=== PATIENT | male | born 1965 | race African-American/Black ===

== ENCOUNTER 2016-11-21 15:06 | Emergency (ER) | payer SELFPAY ==
[~2016-11-21] VITALS: Ht 185.4 cm; Wt 99.8 kg
[2016-11-21 15:16] VITALS: BP 133/80
[2016-11-21] MEDS ORDERED: IPRATRPIUM/ALBUTEROL 0.5/2.5MG 3 ML NEBU. NEB ONE (15:45)
--- NOTE | 2016-11-21 15:58 | PHYS DOC ---
Past Medical History Past Medical History: Other Additional Past Medical Histor: chronic low back pain, drug seeking behavior Past Surgical History: Other Additional Past Surgical Histo: right thumb Alcohol Use: Occasionally Drug Use: None Adult General Chief Complaint Chief Complaint: Congestion HPI HPI Patient is a 51 year old male presents emergency Department today with complaint of progressive cough and congestion that began 3-4 months ago. Patient is a smoker. He averages approximately a pack of cigarettes a day. Patient also smokes marijuana and times smoke marijuana with cocaine. He denies any known history of heart or lung disease. He denies taking antibiotics within the past 30 days. He does report generalized weakness, but denies fevers or chills. He denies myalgias or arthralgias. He denies unexplained loss of weight. Review of Systems Review of Systems Constitutional: Denies fever or chills [] Eyes: Denies change in visual acuity, redness, or eye pain [] HENT: Denies nasal congestion or sore throat [] Respiratory: Denies cough or shortness of breath [] Cardiovascular: No additional information not addressed in HPI [] GI: Denies abdominal pain, nausea, vomiting, bloody stools or diarrhea [] : Denies dysuria or hematuria [] Musculoskeletal: Denies back pain or joint pain [] Integument: Denies rash or skin lesions [] Neurologic: Denies headache, focal weakness or sensory changes [] Endocrine: Denies polyuria or polydipsia [] Current Medications Current Medications Current Medications Medications (Trade) Dose Ordered Sig/Ford Start Time Stop Time Status Last Admin Dose Admin Albuterol/ Ipratropium (Duoneb) 3 ml 1X ONCE 11/21/16 15:45 11/21/16 15:48 DC 11/21/16 16:45 3 ML Ondansetron HCl (Zofran Odt) 4 mg 1X ONCE 11/21/16 17:00 11/21/16 17:01 DC 11/21/16 16:46 4 MG Prednisone (Prednisone) 50 mg 1X ONCE 11/21/16 17:00 11/21/16 17:01 DC 11/21/16 16:44 50 MG Allergies Allergies Allergies Coded Allergies Type Severity Reaction Last Updated Verified No Known Drug Allergies 03/19/15 No Physical Exam Physical Exam Constitutional: Well developed, well nourished, no acute distress, non-toxic appearance. Patient is afebrile. He shows no evidence of respiratory distress or respiratory fatigue. HENT: Normocephalic, atraumatic, bilateral external ears normal, oropharynx moist, no oral exudates, nose normal. Eyes: PERRLA, EOMI, conjunctiva normal, no discharge. [] Neck: Normal range of motion, no tenderness, supple, no stridor. [] Cardiovascular:Heart rate regular rhythm, no murmur. PMI is not displaced. There is no JVD or peripheral edema. Lungs & Thorax: There is no sensory muscle use. Patient has scattered bilateral wheezing. He is able to speak in full sentences. His oxygen saturation varies between 96-99% on room air. Abdomen: Bowel sounds normal, soft, no tenderness, no masses, no pulsatile masses. [] Skin: Warm, dry, no erythema, no rash. [] Back: No tenderness, no CVA tenderness. [] Extremities: No tenderness, no cyanosis, no clubbing, ROM intact, no edema. [] Neurologic: Alert and oriented X 3, normal motor function, normal sensory function, no focal deficits noted. [] Psychologic: Affect normal, judgement normal, mood normal. [] Current Patient Data Vital Signs Vital Signs Date Time Temp Pulse Resp B/P Pulse Ox O2 Delivery O2 Flow Rate FiO2 11/21/16 15:16 98.2 91 18 133/80 95 Room Air 98.2 EKG EKG [] Radiology/Procedures Radiology/Procedures PA and lateral chest x-ray performed and reviewed by the radiologist. There is no evidence of infiltrate, consolidation or abnormalities within the chest. Course & Med Decision Making Course & Med Decision Making Patient's significant other expressed concern for patient's he's had episodes of hematemesis throughout the past year as well. This was not expressed with his initial presentation has not been on any reports of vomiting approximately 2 hours. Patient denies having history of substance abuse including alcohol. He needs to face the fact that he needs to stop abusing his body with substances and establish himself with a primary care doctor, a pie bottomer and a awning hanger helper. This information will be provided to him with his discharge paperwork. Patient was given 50 mg of prednisone here in the emergency department. He also received a 2.5 mg DuoNeb treatment. The wheezing in his lungs significantly decreased. He reports feeling much better after the breathing treatment. Dragon Disclaimer Dragon Disclaimer This electronic medical record was generated, in whole or in part, using a voice recognition dictation system. Departure Departure Impression: Primary Impression: COPD (chronic obstructive pulmonary disease) Additional Impressions: Hematemesis Substance abuse Disposition: 01 HOME, SELF-CARE Condition: IMPROVED Referrals: NO PCP (PCP) NAZANIN STRONG MD, SABATO MD Patient Instructions: Chronic Obstructive Pulmonary Disease Exacerbation, Hematemesis, Smoking Cessation, Tips For Success, Smoking, You Can Quit, Easy-to -Read, Substance Abuse-Brief Additional Instructions: 1. You need to stop smoking him putting other substances in your body there has a posterior health. 2. Review the discharge instructions provided for self-care and reasons to return to the emergency department. 3. A pamphlet is provided to you for assistance in finding a primary care doctor to address her overall medical concerns. Call Thursday to schedule an appointment. 4. Two specialist phone numbers are provided to you with this paperwork. They are for a pie bottomer and a awning hanger helper. Call Thursday to schedule appointments. 5. Take the medication as prescribed. Scripts Famotidine (Pepcid)20 Mg [id number] Mg PO BID #30 TAB Prov:KRISSY DORANTES 11/21/16 Albuterol Sulfate (Proair Hfa Inhaler)8.5 Gm Hfa.aer.ad1 Puff INH PRN Q6HRS PRN SHORTNESS OF BREATH #1 INHALER Ref 1 Prov:KRISSY DORANTES 11/21/16 D-Methorphan Hb/Prometh Hcl (Promethazine-Dm Syrup)118 Ml Syrup5 Ml PO PRN Q6HRS COUGH #120 ML Prov:KRISSY DORANTES 11/21/16 Prednisone 50 Mg [id number] Mg PO DAILY 5 Days Prov:KRISSY DORANTES 11/21/16 Problem Qualifiers KRISSY DORANTES Nov 21, 2016 15:58
[2016-11-21] MEDS ORDERED: PREDNISONE 10 MG TABLET PO ONE (16:00)
--- NOTE | 2016-11-21 16:27 | RAD ---
Indication cough and shortness of breath. PA and lateral views the chest were obtained and are compared to an exam 01/16/2009. There is mild hyperexpansion. The heart and pulmonary vessels and mediastinum appear normal. The lungs are clear of acute infiltrates. Significant pleural fluid is not seen. There is no pneumothorax. There are probable degenerative changes about the left shoulder. A significant change compared to the previous exam is not seen. IMPRESSION: No acute or focal process. No significant change.
[2016-11-21] MEDS ORDERED: PROAIR HFA8.5 GM INH (16:52)
[2016-11-21] MEDS ORDERED: FAMO-63 PO (16:52)
[2016-11-21] MEDS ORDERED: PRED50TA PO (16:52)
[2016-11-21] MEDS ORDERED: D-ME118S2 PO (16:52)
[2016-11-21] MEDS ORDERED: PREDNISONE 20 MG TABLET PO ONE (17:00)
[2016-11-21] MEDS ORDERED: ONDANSETRON ODT 4 MG TAB.RAPDIS PO ONE (17:00)
== END 2016-11-21 17:07 | disposition home or self-care (01) ==
LOC: ER 15:06
DX: K92.0 Hematemesis (principal); J44.9 Chronic obstructive pulmonary disease, unspecified; F17.210 Nicotine dependence, cigarettes, uncomplicated; F12.10 Cannabis abuse, uncomplicated; F14.10 Cocaine abuse, uncomplicated; G89.29 Other chronic pain; M54.5 Low back pain; Z76.5 Malingerer [conscious simulation]
CPT/HCPCS: 71020; 99284; J7512; J7620; Q0162

== ENCOUNTER 2017-01-28 10:45 | Emergency (ER) | payer SELFPAY ==
[~2017-01-28] VITALS: Ht 185.4 cm; Wt 97.5 kg
[~2017-01-28 10:45] MED LIST: D-ME118S2 PO; FAMO-63 PO; PRED50TA PO; PROAIR HFA8.5 GM INH
[2017-01-28 10:50] VITALS: BP 117/67
[2017-01-28] MEDS ORDERED: CYCL10TA2 PO (11:33)
[2017-01-28] MEDS ORDERED: GABA-586 PO (11:33)
[2017-01-28] MEDS ORDERED: OFLO5DRO7 EACH EAR (11:33)
[2017-01-28] MEDS ORDERED: METH4TAB2 PO (11:33)
[2017-01-28] MEDS ORDERED: NAPR500T3 PO (11:33)
--- NOTE | 2017-01-28 11:33 | PHYS DOC ---
Past Medical History Past Medical History: COPD, Pneumonia, Other Additional Past Medical Histor: chronic low back pain, drug seeking behavior Past Surgical History: Other Additional Past Surgical Histo: right thumb Alcohol Use: None Drug Use: None Adult General Chief Complaint Chief Complaint: EARACHE/EAR PAIN [facility] HPI Patient is a 51 year old male with history of COPD who presents today with 2 complaints. Patient is complaining of right ear pain with greenish discharge that began a week ago. Patient denies any fever coughing or congestion. Patient is also complaining of chronic moderate bilateral shoulder pain that has been going on for months. Patient states he believes he has rotator cuff issues. 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 Patient denies any known injury. Review of Systems Review of Systems Constitutional: Denies fever or chills [] Eyes: Denies change in visual acuity, redness, or eye pain [] HENT: Right ear pain with greenish discharge Respiratory: Denies cough or shortness of breath [] Cardiovascular: No additional information not addressed in HPI [] GI: Denies abdominal pain, nausea, vomiting, bloody stools or diarrhea [] : Denies dysuria or hematuria [] Musculoskeletal: Chronic bilateral shoulder pain Integument: Denies rash or skin lesions [] Neurologic: Denies headache, focal weakness or sensory changes [] Endocrine: Denies polyuria or polydipsia [] Allergies Allergies Allergies Coded Allergies Type Severity Reaction Last Updated Verified No Known Drug Allergies 03/19/15 No Physical Exam Physical Exam Constitutional: Well developed, well nourished, no acute distress, non-toxic appearance. [] HENT: Normocephalic, atraumatic, bilateral external ears normal, oropharynx moist, no oral exudates, nose normal. Right ear canal is moderately indurated. There is trace amount of yellow exudate. The TM can barely be visualized but appears normal. Eyes: PERRLA, EOMI, conjunctiva normal, no discharge. [] Neck: Normal range of motion, no tenderness, supple, no stridor. [] Cardiovascular:Heart rate regular rhythm, no murmur [] Lungs & Thorax: Bilateral breath sounds clear to auscultation [] Abdomen: Bowel sounds normal, soft, no tenderness, no masses, no pulsatile masses. [] Skin: Warm, dry, no erythema, no rash. [] Back: No tenderness, no CVA tenderness. [] Extremities: Bilateral shoulders with no obvious deformity. No ecchymosis or edema. No tenderness on palpation of bilateral shoulders. Full range of motion bilateral shoulders. Patient able to abduct and adduct bilateral shoulders with no difficulties. +2 bilateral radial pulses. Adequate ulna radial and medial sensation to bilateral upper extremities. Neurologic: Alert and oriented X 3, normal motor function, normal sensory function, no focal deficits noted. [] Psychologic: Affect normal, judgement normal, mood normal. [] Current Patient Data Vital Signs Vital Signs Date Time Temp Pulse Resp B/P Pulse Ox O2 Delivery O2 Flow Rate FiO2 01/28/17 10:50 97.9 93 18 95 Room Air 97.9 EKG EKG [] Radiology/Procedures Radiology/Procedures [] Course & Med Decision Making Course & Med Decision Making Pertinent Labs and Imaging studies reviewed. (See chart for details) Patient is in the ED with with right otitis externa, discharged with Oflaxacin. He was also complaining of chronic bilateral shoulder pain from rotator cuff issues. I recommended following up with an orthopedic doctor which i provided. He was provided return precautions and discharged in stable condition. Dragon Disclaimer Dragon Disclaimer This electronic medical record was generated, in whole or in part, using a voice recognition dictation system. Departure Departure Impression: Primary Impression: Right otitis externa Additional Impression: Shoulder pain, bilateral Disposition: 01 HOME, SELF-CARE Condition: STABLE Referrals: NO PCP (PCP) DANETTE VERAS MD follow up with Dr. Lewis for chronic shoulder pain Patient Instructions: Otitis Externa, Shoulder Pain, [id number] Additional Instructions: You were seen for otitis externa. Please use the prescribed antibiotic ear drops as ordered. Follow-up with the provided orthopedic doctor for chronic shoulder pain as soon as you can. Scripts Naproxen 500 Mg Tablet1 Tab PO BID #60 TAB Prov:MUTUNGA,MOSES ERP PROJECT MANAGER 01/28/17 Cyclobenzaprine Hcl 10 Mg Tablet1 Tab PO TID #30 TAB Prov:MUTUNGA,MOSES ERP PROJECT MANAGER 01/28/17 Gabapentin 300 Mg [id number] Mg PO TID #30 CAP Prov:MUTUNGA,MOSES ERP PROJECT MANAGER 01/28/17 Methylprednisolone (Medrol)4 Mg Tab.ds.pk1 Pkg PO UD #1 PKG Prov:MUTUNGA,MOSES ERP PROJECT MANAGER 01/28/17 Ofloxacin 5 Ml Drops5 Drop EACH EAR BID #10 ML Prov:MOSES ZIEGLER APRN 01/28/17 Problem Qualifiers Primary Impression: Right otitis externa Otitis externa type: unspecified type Chronicity: acute Qualified Code: H60.501 - Unspecified acute noninfective otitis externa, right ear Additional Impression: Shoulder pain, bilateral Chronicity: chronic Qualified Code: M25.512 - Pain in left shoulder MOSES ZIEGLER APRN Jan 28, 2017 11:33
[2017-01-28] MEDS ORDERED: HYDROCODONE/APAP 5/325MG TABLET. PO ONE (12:00)
== END 2017-01-28 12:01 | disposition home or self-care (01) ==
LOC: ER 10:45
DX: H60.501 Unspecified acute noninfective otitis externa, right ear (principal); G89.29 Other chronic pain; M25.511 Pain in right shoulder; M25.512 Pain in left shoulder; J44.9 Chronic obstructive pulmonary disease, unspecified
CPT/HCPCS: 99283

== ENCOUNTER 2017-11-25 07:40 | Emergency (ER) | payer SELFPAY ==
[2017-11-25 08:16] LABS: ADD MAN DIFF? NO
[2017-11-25] MEDS: DEXAMETHASONE SOD PHOS 4 MG/ML VIAL IV (08:16)
[2017-11-25 08:25] LABS: BASO # 0.1 x10^3/uL (0.0-0.2); BASO % 1 % (0-3); EOS # 0.1 x10^3/uL (0.0-0.7); EOS % 1 % (0-3); HEMATOCRIT 37.7 % (39.0-53.0); HEMOGLOBIN 12.3 g/dL (13.0-17.5); LYMPH # 2.2 x10^3/uL (1.0-4.8); LYMPH % 27 % (24-48); MEAN CORPUSCULAR HEMOGLOBIN 27 pg (25-35); MEAN CORPUSCULAR HGB CONC 33 g/dL (31-37); MEAN CORPUSCULAR VOLUME 83 fL (79-100); MONO # 0.7 x10^3/uL (0.0-1.1); MONO % 8 % (0-9); NEUT # 5.1 x10^3uL (1.8-7.7); NEUT % 63 % (31-73); PLATELET COUNT 388 x10^3/uL (140-400); RED BLOOD COUNT 4.52 x10^6/uL (4.30-5.70); RED CELL DISTRIBUTION WIDTH 13.3 % (11.5-14.5); WHITE BLOOD COUNT 8.1 x10^3/uL (4.0-11.0)
[2017-11-25 08:27] LABS: ANION GAP 4 (6-14); BLOOD UREA NITROGEN 16 mg/dL (8-26); BUN/CREATININE RATIO 16 (6-20); CALCIUM 8.7 mg/dL (8.5-10.1); CARBON DIOXIDE 31 mmol/L (21-32); CHLORIDE 105 mmol/L (98-107); GFR 95.7; GLUCOSE 94 mg/dL (70-99); POTASSIUM 4.4 mmol/L (3.5-5.1); SODIUM 140 mmol/L (136-145)
[2017-11-25] MEDS: IPRATRPIUM/ALBUTEROL 0.5/2.5MG 3 ML NEBU. NEB (08:28)
[2017-11-25 08:34] LABS: ALBUMIN 3.7 g/dL (3.4-5.0); ALBUMIN/GLOBULIN RATIO 0.9 (1.0-1.7); ALK PHOS 96 U/L (46-116); ALT (SGPT) 21 U/L (16-63); AST (SGOT) 23 U/L (15-37); TOTAL BILIRUBIN 0.2 mg/dL (0.2-1.0); TOTAL PROTEIN 7.8 g/dL (6.4-8.2)
[2017-11-25 08:36] LABS: TROPONINI < 0.017 ng/mL (0.000-0.055)
== END 2017-11-25 09:07 | disposition home or self-care (01) ==
LOC: ER 07:40
DX: J18.9 Pneumonia, unspecified organism (principal); J44.1 Chronic obstructive pulmonary disease with (acute) exacerbation; G89.29 Other chronic pain; F17.200 Nicotine dependence, unspecified, uncomplicated; Z79.899 Other long term (current) drug therapy
CPT/HCPCS: 36415; 71046; 80053; 84484; 85025; 93005; 94640; 96374; 99285-25; J1100; J7620

== ENCOUNTER 2017-12-09 07:37 | Emergency (ER) | payer OTHER ==
[2017-12-09] MEDS: BACITRACIN TOPICAL OINT 14GM TUBE. TP ×2 (09:20)
== END 2017-12-09 09:22 | disposition home or self-care (01) ==
LOC: ER 07:37
DX: T20.26XA Burn of second degree of forehead and cheek, initial encounter (principal); T20.24XA Burn of second degree of nose (septum), initial encounter; J44.9 Chronic obstructive pulmonary disease, unspecified; G89.29 Other chronic pain; X08.8XXA Exposure to other specified smoke, fire and flames, initial encounter; Y93.89 Activity, other specified; Y92.89 Other specified places as the place of occurrence of the external cause; Y99.8 Other external cause status
CPT/HCPCS: 99283

== ENCOUNTER 2018-02-02 17:06 | Emergency (ER) | payer SELFPAY, OTHER ==
[2018-02-02] MEDS: IPRATRPIUM/ALBUTEROL 0.5/2.5MG 3 ML NEBU. NEB (17:40)
[2018-02-02 17:44] LABS: ADD MAN DIFF? NO
[2018-02-02 17:45] LABS: BASO % 0 % (0-3); EOS # 0.1 x10^3/uL (0.0-0.7); EOS % 1 % (0-3); HEMATOCRIT 40.9 % (39.0-53.0); HEMOGLOBIN 13.3 g/dL (13.0-17.5); LYMPH # 2.3 x10^3/uL (1.0-4.8); LYMPH % 29 % (24-48); MEAN CORPUSCULAR HEMOGLOBIN 28 pg (25-35); MEAN CORPUSCULAR HGB CONC 33 g/dL (31-37); MEAN CORPUSCULAR VOLUME 85 fL (79-100); MONO # 0.7 x10^3/uL (0.0-1.1); MONO % 9 % (0-9); NEUT # 5.1 x10^3uL (1.8-7.7); NEUT % 62 % (31-73); PLATELET COUNT 369 x10^3/uL (140-400); RED BLOOD COUNT 4.79 x10^6/uL (4.30-5.70); RED CELL DISTRIBUTION WIDTH 14.7 % (11.5-14.5); WHITE BLOOD COUNT 8.2 x10^3/uL (4.0-11.0)
[2018-02-02 17:58] LABS: ANION GAP 10 (6-14); BLOOD UREA NITROGEN 19 mg/dL (8-26); CALCIUM 8.8 mg/dL (8.5-10.1); CARBON DIOXIDE 25 mmol/L (21-32); CHLORIDE 104 mmol/L (98-107); CREATININE 1.4 mg/dL (0.7-1.3); GFR 64.9; GLUCOSE 141 mg/dL (70-99); POTASSIUM 4.2 mmol/L (3.5-5.1); SODIUM 139 mmol/L (136-145)
[2018-02-02 18:03] LABS: ALBUMIN 3.5 g/dL (3.4-5.0); ALK PHOS 84 U/L (46-116); ALT (SGPT) 21 U/L (16-63); AST (SGOT) 17 U/L (15-37); DIRECT BILIRUBIN 0.1 mg/dL (0.0-0.2); LIPASE 56 U/L (73-393); TOTAL BILIRUBIN 0.4 mg/dL (0.2-1.0); TOTAL PROTEIN 7.1 g/dL (6.4-8.2)
[2018-02-02 18:04] LABS: TROPONINI < 0.017 ng/mL (0.000-0.055)
[2018-02-02 18:08] LABS: NT-PRO BNP 19 pg/mL (0-124)
[2018-02-02 20:09] LABS: TROPONINI < 0.017 ng/mL (0.000-0.055)
[2018-02-02] MEDS: ASPIRIN 325 MG TABLET PO (21:16)
[2018-02-02] MEDS: HYDROcodone/APAP 5/325MG 1 TAB TABLET PO (21:19)
== END 2018-02-02 21:40 | disposition home or self-care (01) ==
LOC: ER 17:06
DX: R06.02 Shortness of breath (principal); R07.89 Other chest pain; R00.0 Tachycardia, unspecified; J44.9 Chronic obstructive pulmonary disease, unspecified; G89.29 Other chronic pain; Z87.01 Personal history of pneumonia (recurrent); Z87.891 Personal history of nicotine dependence
CPT/HCPCS: 36415; 71045; 80048; 80076; 83690; 83880; 84484; 85025; 93005; 94640; 99285-25; J7620